=== PATIENT | male | born 1940 | race Caucasian/White ===

== ENCOUNTER 2017-10-28 10:33 | Inpatient (IN) ==
[2017-10-28] MEDS ORDERED: Metoprolol Tartrate 25 MG Tablet PO SCH (11:30)
[2017-10-28] MEDS ORDERED: Chlorhexidine Gluconate 2% 1 Pack (2 Cloths) TOPICAL SCH (11:30)
[2017-10-28] MEDS ORDERED: Sodium Chlor 0.9% Inj 500 ML IV.SIG SCH (12:00)
[2017-10-28] MEDS ORDERED: Phenylephrine/NS 1000 MCG/10ML Syringe IV.PUSH ONE (12:00)
[2017-10-28] MEDS ORDERED: Lidocaine PF 1% Inj 5 ML Syringe INFILTRATN ONE (12:00)
[2017-10-28] MEDS ORDERED: Normosol-R pH 7.4 Inj 1,000 ML IV.CONT ONE (12:00)
[2017-10-28] MEDS ORDERED: fentaNYL Citrate Inj 250 MCG/5 ML Ampul ONE (19:12)
[2017-10-28] MEDS ORDERED: Lidocaine 1%/Epinephrine 1:100,000 Inj 20 ML Vial ONE ×2 (19:14→20:35)
[2017-10-28] MEDS ORDERED: Thrombin Topical Soln 5,000 UNIT Vial TOPICAL ONE (19:15)
[2017-10-28] MEDS ORDERED: Heparin - SQ 10,000 UNITS/ML Vial SQ ONE (19:16)
[2017-10-28] MEDS ORDERED: Ketamine Inj 50 MG/5 ML Syringe IV.PUSH ONE ×2 (19:21→23:02)
[2017-10-28] MEDS ORDERED: Gelatin Size 100 Topical Foam ONE (19:49)
[2017-10-28] MEDS ORDERED: Propofol Inj 500 MG/50 ML Vial ONE (21:37)
[2017-10-29] MEDS ORDERED: Sodium Bicarbonate 8.4% Inj 50 MEQ/50 ML Syringe ONE ×2 (02:26→03:13)
[2017-10-29 02:30] LABS: ABG PCO2 43 mmHg (38-42); ABG PO2 235 mmHG (61-120)
[2017-10-29] MEDS ORDERED: fentaNYL Citrate Inj 100 MCG/2 ML Ampul ONE (02:47)
[2017-10-29] MEDS ORDERED: Morphine Inj 4 MG/ML Vial IV.PUSH PRN (02:58)
[2017-10-29] MEDS ORDERED: Bisacodyl 10 MG Supp RECTAL PRN (02:58)
[2017-10-29] MEDS ORDERED: Acetaminophen 325 MG Tablet PO PRN (02:58)
--- NOTE | 2017-10-29 02:58 | P.OP ---
- Preoperative Diagnosis (1) Lumbar radiculopathy (2) Synovial cyst of lumbar facet joint (3) Lumbar disc herniation with radiculopathy (4) Lumbar stenosis with neurogenic claudication - Postoperative Diagnosis (1) Lumbar radiculopathy (2) Synovial cyst of lumbar facet joint (3) Lumbar disc herniation with radiculopathy (4) Lumbar stenosis with neurogenic claudication Date of procedure: 10/28/17 Procedure: 1. Bilateral L3-4 and L4-5 decompressive semi-laminectomy, left facetectomy and foraminotomy 2. L3-4 and L4-5 discectomy, resection posterior osteophytic disc complex 3. Resection left L3-4 synovial cyst 4. L3-4 and L4-5 interbody fusion, PEEK cage, lamina autograft bone and demineralized bone matrix. 5. Bilateral L3 through L5 posterior lateral fusion, lamina autograft bone and demineralized bone matrix 6. Bilateral L3 through 5 posterior instrumentation with pedicle screw fixation Implants: L3-4 and L4-5 lordotic PEEK cages, spine with pedicle screw fixation Anesthesia: DIOMEDES Surgeon: Raghavendra Van MD Human Anatomy Teacher: Sathya Couch Estimated blood loss (mL): 350 Pathology: none sent Operation and Findings: Indications: 77-year-old male with progressive severe left gluteal and lower extremity pain not relieved with conservative treatment including physical therapy, medications and interventional pain management, with more recent onset left L5 distribution sensory motor deficit with left foot drop. Findings: Left L3-4 synovial cyst with significant adhesions to the thecal sac and exiting left L4 nerve root. Poor overall bone quality. A large L4-5 and moderate L3-4 posterior osteophytic disc complex causing significant compression on the ventral thecal sac. Procedure in detail The patient was brought to the operating room and general endotracheal anesthesia induced without difficulty Lines were established per Anesthesia Sequential compression devices were in place The patient was positioned prone on the concentric Vishnu table with the side bolsters and all extremities appropriately padded Leads for intraoperative neuro monitoring were placed prior to positioning and a baseline study obtained Appropriate timeout procedure was performed with all personnel present and in agreement The lumbar region was shaved with clippers and sterilely prepped and draped 1% Xylocaine with epinephrine was used for local infiltration over the incision site which was made approximately 4 cm lateral to the midline at the bilateral L3-5 level and carried sharply down to the fascia. The fascia was sharply incised and finger dissection was used to separate the normal intermuscular plane at the bilateral L3-5 level, allowing direct palpation of the junction of the and pedicle and transverse process on each side. The entry point for the pedicle screws were determined by anatomic and radiographic landmarks. Using AP and lateral C-arm imaging, the Jamshidi needle was guided through the bilateral L3, L4 and L5 pedicle. The intraoperative C-arm imaging was used to verify appropriate Jamshidi needle placement. The wires were then placed through the Jamshidi needle cannulas, and the cannula was withdrawn. The wires were temporarily clipped away from the operative field. On the left side Dowell elevator was used for subperiosteal elevation of paraspinous musculature and fascia away from the lamina and spinous processes L3 , L4, and L5. The deep self-retaining retractor was placed sequentially at the L3-4 and L4-5 levels for the decompression and cage placement. The appropriate levels were verified with intraoperative C-arm The microscope was moved into place and used for the remainder of the procedure including the closure The TPS drill with a 5 mm bone bur followed by the Kerrison rongeur was used to remove the inferior two thirds of the lamina at the cephalad level of the decompression and the superior third of the lamina at the caudal level of the decompression. This was performed starting on the left side, and then working across midline towards the right. The facetectomy and foraminotomy was performed on the left side with the 2 and 3 mm Kerrison rongeur in order to fully decompress the lateral recess and exiting nerve roots. Hypertrophied ligamentum flavum was elevated away from the thecal sac and exiting nerve roots with the thin ligament dissector and resected with a 15 blade knife and Kerrison rongeur. At the left L3-4 level, there was a moderate sized synovial cyst impinging on the lateral recess and exiting left L4 nerve root. There were dense adhesions between the synovial cyst and thecal sac. The majority of the capsule of the cyst was resected with the microscissors and 11 blade knife under high-power microscope magnification, and the residual cyst wall which was markedly adherent to the dura was left in place but was not causing any significant compression on the thecal sac or nerve root. The thecal sac and exiting nerve root were freed up from surrounding adhesions with the microdissectors and gently retracted medially revealing the underlying disc and annulus. There was moderate subannular disc herniation with partial calcification at the L3-4 level, with a very prominent posterior osteophytic disc complex at the L4- 5 level causing significant compression on the thecal sac. The annulus was incised with the 11 blade knife and discectomy performed with pituitary biopsy forceps and straight and angled curettes. The impactor and reverse curettes were used to remove the posterior osteophytic disc complex at the L3-4 and L4-5 level. In preparation for the interbody cages, endplate scrapers were used to decorticate the endplates and any remaining debris was removed with the antibiotic irrigation and suction and pituitary biopsy forceps The appropriate size lordotic PEEK cage was packed with retained lamina cancellus autograft And a small amount of demineralized bone matrix The cage was placed at the L3-4 and L4-5 level with a good fit of the cage. The placement was checked under the microscope and with intraoperative C-arm and felt to be satisfactory. The thecal sac and nerve roots were probed with the long blunt nerve hook and felt to be well decompressed The cannulated 5.5 mm tap was then used to prepare the pedicle screw sites on each side, with the dilators used to protect the surrounding tissue. The appropriate length Spine Wave Sniper percutaneous cannulated pedicle screw attached to the MIS extenders were placed into the bilateral L3, L4 and L5 pedicle using the existing guidewires which were then removed. Pedicle screw placement was checked with intraoperative C-arm imaging and felt to be satisfactory. The percutaneous rods were placed across the pedicle screws on each side. The locking caps were secured with the torque wrench and anti-torque device Compression and alignment were achieved as necessary with the rods and reducers. The entire construct was checked with intraoperative C-arm and felt to be satisfactory The region was well irrigated with antibiotic irrigation The posterior lateral structures at the bilateral L3-4 -5 levels were decorticated with the TPS drill The shavings were left in place, to which was added the remaining autograft and allograft bone which was firmly packed in place for the posterior lateral fusion. The 7 mm flat fluted drain was left in place at the operative side and brought out through a incision at the upper lumbar region and secured to the skin with nylon suture and attached to sterile suction bleeding was carefully controlled with the bipolar forceps The closure was performed with 0 Vicryl interrupted for the deep and superficial fascia, with 3-0 Vicryl for the subcutaneous closure and 4-0 Vicryl running subcuticular closure. Dressings sterile Mastisol, Steri-Strips and Primapore was placed The patient was turned into supine position and taken to recovery room in stable condition All counts were correct at the end of the case Estimated blood loss was 350 cc No specimen was sent to pathology Neuro monitoring was stable during the procedure
[2017-10-29 03:22] LABS: ABG Base Excess -5.9 mmol/L (-2-2); ABG PCO2 42 mmHg (38-42); ABG PO2 143 mmHG (61-120)
[2017-10-29] MEDS ORDERED: *morphine SULFATE 4 MG/ML PERIprocedure ONLY ONE (03:22)
--- NOTE | 2017-10-29 03:27 | XR ---
EXAM DATE: 10/29/2017 2:50 AM EDT AGE/SEX: 77 years / Male INDICATIONS: L3,L4,L5 fusion. CLINICAL DATA: This is the patient's initial encounter. Patient reports that signs and symptoms have been present for 1 day and indicates a pain score of 0/10. MEDICAL/SURGICAL HISTORY: Non-responsive. Non-responsive. COMPARISON: [facility], MR CERVICAL SPINE W/O CONTRAST, 10/09/2017. . FINDINGS: 2 fluoroscopic images of the lower lumbar spine demonstrate intradiscal and posterior artem and transpe dicular screw fixation at L3-5. Hardware appears well-positioned. Visualized vertebral body heights a re intact. CONCLUSION: 1. L3-5 posterior fixation, as above. Electronically signed by: Steven Rios MD 10/29/2017 3:26 AM EDT
[2017-10-29] MEDS ORDERED: Sodium Chlor 0.9% Inj 250 ML IV.SIG ONE (04:00)
[2017-10-29 04:02] LABS: ABG Base Excess -4.2 mmol/L (-2-2); ABG PCO2 50 mmHg (38-42); ABG PO2 201 mmHG (61-120)
[2017-10-29 04:24] LABS: Baso % (Auto) 0.1 % (0.0-2.0); Hematocrit 33.1 % (39.0-51.0); Hemoglobin 11.1 gm/dL (13.0-17.0); Lymph # (Auto) 0.5 th/mm3 (1.0-4.8); Lymph % (Auto) 3.8 % (9.0-44.0); Mean Corpuscular HGB Conc 33.5 % (32.0-36.0); Mean Corpuscular Hemoglobin 34.2 pg (27.0-34.0); Mean Corpuscular Volume 101.9 fL (80.0-100.0); Mean Platelet Volume 8.3 fL (7.0-11.0); Mono # (Auto) 0.6 th/mm3 (0.0-0.9); Mono % (Auto) 4.8 % (0.0-8.0); Neut # (Auto) 11.9 th/mm3 (1.8-7.7); Neut % (Auto) 91.3 % (16.0-70.0); Platelet Count 164 th/mm3 (150-450); Red Blood Count 3.25 mil/mm3 (4.50-5.90); White Blood Count 13.1 th/mm3 (4.0-11.0)
[2017-10-29 04:39] LABS: Calcium 8.2 mg/dL (8.5-10.1); Carbon Dioxide 23.8 meq/L (21.0-32.0); Potassium 3.5 meq/L (3.5-5.1)
--- NOTE | 2017-10-29 07:26 | XR ---
EXAM DATE: 10/29/2017 7:02 AM EDT AGE/SEX: 77 years / Male INDICATIONS: Short of breath. CLINICAL DATA: This is the patient's subsequent encounter. Patient reports that signs and symptoms h ave been present for 3 days and indicates a pain score of Nonresponsive. MEDICAL/SURGICAL HISTORY: . Cardiovascular disease. Hypertension. None. COMPARISON: [facility] [place], CHEST 2V PA&LAT, 10/27/2017. . FINDINGS: A single AP view of the chest demonstrates the lungs to be symmetrically aerated without evidence of mass, infiltrate or effusion. The cardiomediastinal contours are unremarkable. Osseous structures a re intact. Hyperinflation. CONCLUSION: Negative examination. Electronically signed by: Rajeev Barbosa MD 10/29/2017 7:24 AM EDT
[2017-10-29] MEDS: amLODIPine 5 MG Tablet PO SCH ×2 (08:53→21:29)
[2017-10-29] MEDS: Famotidine 20 MG Tablet PO SCH (08:53)
[2017-10-29] MEDS: Senna/Docusate Sodium 8.6/50 MG Tablet PO SCH ×2 (08:53→21:29)
[2017-10-29] MEDS: Spironolactone 25 MG Tablet PO SCH (08:53)
[2017-10-29] MEDS: Metoprolol Tartrate 50 MG Tablet PO SCH ×2 (08:53→21:29)
--- NOTE | 2017-10-29 17:38 | P.PNNS ---
Subjective Interval history: 10/28: The patient presented to [facility] to undergo a bilateral L3-4 and L4-5 PLIF. Post-operatively the patient was admitted to a regular med/surg floor for further care and monitoring. 10/29: This afternoon the patient is seen sitting up in the chair with the LSO brace on. He states that his back feels good and he has minimal pain. He reports that the left lower extremity is doing great. Physical Therapy has evaluated the patient and had him upon ambulating with a wheeled walker. His lower extremity motor strength is essentially normal upon examination and he had no sensory deficits. <Joshua Alejandro E - Last Filed: 10/29/17 17:44> Physical Exam Vital signs: Vital Signs 10/28/17 18:35 10/29/17 02:36 10/29/17 02:45 Temperature 97.6 F 97.4 F L Pulse Rate 66 102 H 97 H Respiratory Rate 15 Blood Pressure 176/88 H 134/68 134/52 L Pulse Oximetry 98 100 10/29/17 03:00 10/29/17 03:15 10/29/17 03:30 Temperature Pulse Rate 97 H 97 H 97 H Respiratory Rate 12 15 10 L Blood Pressure 132/53 L 132/51 L 133/51 L Pulse Oximetry 100 100 100 10/29/17 03:45 10/29/17 04:00 10/29/17 04:15 Temperature 97.4 F L Pulse Rate 97 H 97 H 84 Respiratory Rate 9 L 9 L 20 Blood Pressure 134/61 132/43 L 131/64 Pulse Oximetry 100 100 100 10/29/17 04:18 10/29/17 06:00 10/29/17 08:00 Temperature 98.0 F 97.7 F Pulse Rate 99 H 94 H Respiratory Rate 17 18 Blood Pressure 117/61 144/67 H Pulse Oximetry 100 100 94 L 10/29/17 12:00 10/29/17 16:00 Temperature 98.2 F 97.7 F Pulse Rate 91 H 68 Respiratory Rate 18 18 Blood Pressure 150/72 H 151/69 H Pulse Oximetry 99 95 Intake & Output 10/28/17 10/29/17 10/29/17 18:59 06:59 18:59 Intake Total 2450 / 2450 Output Total 935 / 935 Balance 1515 / 1515 Weight 63.3 kg Intake: IV 250 / 250 NS Inj 250 ML @ As Directed IV. 250 / 250 SIG BOLUS ONE Rx#:[id number] Anesthesia Amount 2200 / 2200 Output: Estimated Blood Loss 350 / 350 Urine Amount (Catheter) 465 / 465 Indwelling Urethral Catheter 465 / 465 Wound Drainage 120 / 120 # 1 Lower Back CARMEN Drain 120 / 120 Other: Date of Last Bowel Movement 10/28/17 10/28/17 Weight On Admission 63.3 kg Narrative: GENERAL: Awake & alert sitting up in the chair eating supper and visiting w/his . His affect is normal and he readily interacts. He is not in any apparent distress. HEENT: Normocephalic, atraumatic. RESPIRATORY: CTAB w/o W/R/R, equal excursion, nonlaboured, on RA. CARDIOVASCULAR: S1S2 w/RRR w/o M/G/R. GASTROINTESTINAL: Abdomen, soft, nontender, positive bowel sounds. GENITOURINARY: Ramos catheter to BSD w/clear yellow urine. MUSCULOSKELETAL: RAINES spontaneously & purposefully w/o difficulty. No evident clubbing or deformity. BLE NTTP. Dressings intact to back w/shadowing noted to the superior midline dressing, the CARMEN drain is to bulb suction w/scant serosanguinous drainage having just been emptied. NEUROLOGICAL: AAOx3. Speech clear & appropriate. Follows simple commands w/o difficulty. Sensation is intact to light touch to the lower extremities. Motors strength to the RLE is 5/5 and the LLE is 4+ to 5/5 except for the left extensor hallucis longus is 3+ to 4/5. - Urinary Catheter Management Indwelling Urethral Catheter Cath placed during this visit: yes Reason for continuing: Other continuation reason Insertion date: 10/29/17 <Joshua Alejandro E - Last Filed: 10/29/17 17:44> Vital signs: Vital Signs 10/31/17 03:58 10/31/17 09:11 10/31/17 12:00 Temperature 97.6 F 98.3 F 97.5 F L Pulse Rate 65 68 60 Respiratory Rate 18 16 16 Blood Pressure 161/74 H 154/67 H 139/65 Pulse Oximetry 96 94 L 94 L 10/31/17 16:00 10/31/17 20:00 10/31/17 23:32 Temperature 97.6 F 98.4 F Pulse Rate 67 65 Respiratory Rate 16 16 16 Blood Pressure 161/70 H 173/78 H Pulse Oximetry 95 96 11/01/17 00:00 Temperature 97.3 F L Pulse Rate 58 L Respiratory Rate 16 Blood Pressure 155/70 H Pulse Oximetry 95 Intake & Output 10/31/17 10/31/17 11/01/17 06:59 18:59 06:59 Intake Total 360 / 360 600 / 600 240 / 240 Output Total 25 40 / 40 Balance 335 / 335 560 / 560 240 / 240 Weight 62.7 kg Intake: Oral 360 / 360 600 / 600 240 / 240 Output: Wound Drainage 40 / 40 # 1 Lower Back CARMEN Drain 40 / 40 Other: # Voids 4 4 3 Date of Last Bowel Movement 10/28/17 10/28/17 # Bowel Movements 0 - Urinary Catheter Management Indwelling Urethral Catheter Cath placed during this visit: no <Raghavendra Van - Last Filed: 11/01/17 01:02> Assessment and Plan - Plan Impression: (1) Lumbar radiculopathy (2) Synovial cyst of lumbar facet joint (3) Lumbar disc herniation with radiculopathy (4) Lumbar stenosis with neurogenic claudication The patient is doing well post-operatively. His pain is well controlled. He ambulating with a wheeled walker. His sensorimotor exam is essentially normal. Past 24 hrs: Afebrile. CARMEN drain output of 120 mL since surgery as of shift change this morning. Reviewed labs for today. Leukocytosis. Anaemia. eGFR 41. POD #1 () s/p: 1. Bilateral L3-4 and L4-5 decompressive semi-laminectomy, left facetectomy and foraminotomy 2. L3-4 and L4-5 discectomy, resection posterior osteophytic disc complex 3. Resection left L3-4 synovial cyst 4. L3-4 and L4-5 interbody fusion, PEEK cage, lamina autograft bone and demineralized bone matrix. 5. Bilateral L3 through L5 posterior lateral fusion, lamina autograft bone and demineralized bone matrix 6. Bilateral L3 through 5 posterior instrumentation with pedicle screw fixation Plan: Neuro checks. Mobilise patient w/assistance. Physical Therapy eval & tx. Will d/c Ramos catheter. <Javon,Joshua E - Last Filed: 10/29/17 17:44> - Attending Attestation The exam, history, and the medical decision-making described in the above note were completed with the assistance of the mid-level provider. I reviewed and agree with the findings presented. I attest that I had a [id number] encounter with the patient on the same day, and personally performed and documented my assessment and findings in the medical record. Postop day #1. Moderate drain output. Requiring some IV pain medicines for pain control. Out of bed with brace Continue therapy Continue drain <Raghavendra Van - Last Filed: 11/01/17 01:02>
[2017-10-30 05:12] LABS: Baso % (Auto) 0.4 % (0.0-2.0); Eos # (Auto) 0.1 th/mm3 (0.0-0.4); Eos % (Auto) 0.7 % (0.0-4.0); Hematocrit 29.4 % (39.0-51.0); Lymph # (Auto) 0.9 th/mm3 (1.0-4.8); Lymph % (Auto) 9.7 % (9.0-44.0); Mean Corpuscular HGB Conc 33.9 % (32.0-36.0); Mean Corpuscular Hemoglobin 34.5 pg (27.0-34.0); Mean Corpuscular Volume 101.7 fL (80.0-100.0); Mean Platelet Volume 8.5 fL (7.0-11.0); Mono # (Auto) 1.1 th/mm3 (0.0-0.9); Mono % (Auto) 12.9 % (0.0-8.0); Neut # (Auto) 6.8 th/mm3 (1.8-7.7); Neut % (Auto) 76.3 % (16.0-70.0); Platelet Count 154 th/mm3 (150-450); Red Blood Count 2.89 mil/mm3 (4.50-5.90); Red Cell Distribution Width 13.4 % (11.6-17.2); White Blood Count 8.9 th/mm3 (4.0-11.0)
[2017-10-30 05:37] LABS: Calcium 8.2 mg/dL (8.5-10.1); Carbon Dioxide 27.8 meq/L (21.0-32.0); Potassium 4.1 meq/L (3.5-5.1)
[2017-10-30] MEDS: Senna/Docusate Sodium 8.6/50 MG Tablet PO SCH ×2 (08:38→20:27)
[2017-10-30] MEDS: Metoprolol Tartrate 50 MG Tablet PO SCH ×2 (08:38→20:27)
[2017-10-30] MEDS: amLODIPine 5 MG Tablet PO SCH ×2 (08:38→20:27)
[2017-10-30] MEDS: Famotidine 20 MG Tablet PO SCH (08:38)
--- NOTE | 2017-10-30 15:41 | P.DCO ---
- Home Health Nursing Order: Nursing assessment with vital signs - Certification I have seen patient Willy Tyson on 10/30/17. My clinical findings support the need for the requested home health care services because: Deconditioned with increased weakness, High risk of falls I certify that my clinical findings support that this patient is homebound because: Unsteady gait/balance, Unsafe to leave home unassisted
--- NOTE | 2017-10-30 15:45 | P.PNNS ---
Subjective Interval history: 10/28: The patient presented to [facility] to undergo a bilateral L3-4 and L4-5 PLIF. Post-operatively the patient was admitted to a regular med/surg floor for further care and monitoring. 10/29: This afternoon the patient is seen sitting up in the chair with the LSO brace on. He states that his back feels good and he has minimal pain. He reports that the left lower extremity is doing great. Physical Therapy has evaluated the patient and had him upon ambulating with a wheeled walker. His lower extremity motor strength is essentially normal upon examination and he had no sensory deficits. 10/30: When seen this afternoon the patient had his eyes closed but as soon as this practitioner spoke with his he opened them. He was awake and alert after that. He reports that he has a little back pain but it isn't too bad. He denies any pain, numbness or tingling to the lower extremities. Nursing reports that the patient has been up and doing laps around the floor using the wheeled walker. His evaluation is stable. <Joshua Alejandro E - Last Filed: 10/30/17 15:49> Physical Exam Vital signs: Vital Signs 10/29/17 16:00 10/29/17 20:05 10/30/17 00:00 Temperature 97.7 F 98.3 F 98.1 F Pulse Rate 68 66 67 Respiratory Rate 18 16 16 Blood Pressure 151/69 H 135/61 131/63 Pulse Oximetry 95 96 94 L 10/30/17 04:00 Temperature 98.0 F Pulse Rate 80 Respiratory Rate 16 Blood Pressure 180/77 H Pulse Oximetry 94 L Intake & Output 10/29/17 10/30/17 10/30/17 18:59 06:59 18:59 Intake Total 1000 / 1000 480 / 480 Output Total 120 / 120 1770 / 1770 Balance 880 / 880 -1290 / -1290 Intake: IV 1000 / 1000 NS + KCl 20 mEq Inj 1,000 ML @ 1000 / 1000 100 mls/hr IV.CONT .Q10H EDWIN Rx #:[id number] Oral 480 / 480 Output: Urine Amount (Catheter) 1700 / 1700 Indwelling Urethral Catheter 1700 / 1700 Wound Drainage 120 / 120 70 / 70 # 1 Lower Back CARMEN Drain 120 / 120 70 / 70 Other: # Voids 3 Date of Last Bowel Movement 10/28/17 10/29/17 # Bowel Movements 0 Narrative: GENERAL: Appears asleep but is immediately awake & alert when he hears this practitioner speaking with his . His affect is normal and he readily interacts. He is not in any apparent distress. HEENT: Normocephalic, atraumatic. MUSCULOSKELETAL: RAINES spontaneously & purposefully w/o difficulty. No evident clubbing or deformity. BLE NTTP. Dressings intact to back w/increased shadowing noted to the midline dressing, the CARMEN drain is to bulb suction w/serosanguinous drainage. NEUROLOGICAL: AAOx3. Speech clear & appropriate. Follows simple commands w/o difficulty. Sensation is intact to light touch to the lower extremities. Motors strength to the RLE is 5/5 and the LLE is 4+ to 5/5 except for the left extensor hallucis longus is 3+ to 4/5. - Urinary Catheter Management Indwelling Urethral Catheter Cath placed during this visit: yes, but has since been removed by the nurse Reason for continuing: Decision to DC catheter Insertion date: 10/29/17 Removal date: 10/29/17 Removal time: 18:22 <Joshua Alejandro E - Last Filed: 10/30/17 15:49> Vital signs: Vital Signs 10/31/17 03:58 10/31/17 09:11 10/31/17 12:00 Temperature 97.6 F 98.3 F 97.5 F L Pulse Rate 65 68 60 Respiratory Rate 18 16 16 Blood Pressure 161/74 H 154/67 H 139/65 Pulse Oximetry 96 94 L 94 L 10/31/17 16:00 10/31/17 20:00 10/31/17 23:32 Temperature 97.6 F 98.4 F Pulse Rate 67 65 Respiratory Rate 16 16 16 Blood Pressure 161/70 H 173/78 H Pulse Oximetry 95 96 11/01/17 00:00 Temperature 97.3 F L Pulse Rate 58 L Respiratory Rate 16 Blood Pressure 155/70 H Pulse Oximetry 95 Intake & Output 10/31/17 10/31/17 11/01/17 06:59 18:59 06:59 Intake Total 360 / 360 600 / 600 240 / 240 Output Total 25 / 25 40 / 40 Balance 335 / 335 560 / 560 240 / 240 Weight 62.7 kg Intake: Oral 360 / 360 600 / 600 240 / 240 Output: Wound Drainage 25 / 40 / 40 # 1 Lower Back CARMEN Drain 40 / 40 Other: # Voids 4 4 3 Date of Last Bowel Movement 10/28/17 10/28/17 # Bowel Movements 0 - Urinary Catheter Management Indwelling Urethral Catheter Cath placed during this visit: no <Raghavendra Van Ananth - Last Filed: 11/01/17 01:03> Assessment and Plan - Assessment (1) Lumbar radiculopathy Code(s): M54.16 - Radiculopathy, lumbar region Status: Acute (2) Synovial cyst of lumbar facet joint Code(s): M71.38 - Other bursal cyst, other site Status: Acute (3) Lumbar disc herniation with radiculopathy Code(s): M51.16 - Intervertebral disc disorders with radiculopathy, lumbar region Status: Acute (4) Lumbar stenosis with neurogenic claudication Code(s): M48.062 - Spinal stenosis, lumbar region with neurogenic claudication Status: Acute - Plan Impression: (1) Lumbar radiculopathy (2) Synovial cyst of lumbar facet joint (3) Lumbar disc herniation with radiculopathy (4) Lumbar stenosis with neurogenic claudication The patient continues to do well post-operatively. His pain remains well controlled. He ambulating with a wheeled walker. His sensorimotor exam is stable. Past 24 hrs: Afebrile. Elevated SBP this afternoon. CARMEN drain output of 190 mL for the past 24 hrs as of shift change this morning. Reviewed labs for today. Resolution of leukocytosis. Drop in haemoglobin level. eGFR 41. POD #2 () s/p: 1. Bilateral L3-4 and L4-5 decompressive semi-laminectomy, left facetectomy and foraminotomy 2. L3-4 and L4-5 discectomy, resection posterior osteophytic disc complex 3. Resection left L3-4 synovial cyst 4. L3-4 and L4-5 interbody fusion, PEEK cage, lamina autograft bone and demineralized bone matrix. 5. Bilateral L3 through L5 posterior lateral fusion, lamina autograft bone and demineralized bone matrix 6. Bilateral L3 through 5 posterior instrumentation with pedicle screw fixation Plan: Neuro checks. Mobilise patient w/assistance. Physical Therapy eval & tx. Continue to monitor CARMEN drain output. <Joshua Alejandro - Last Filed: 10/30/17 15:49> - Attending Attestation The exam, history, and the medical decision-making described in the above note were completed with the assistance of the mid-level provider. I reviewed and agree with the findings presented. I attest that I had a [id number] encounter with the patient on the same day, and personally performed and documented my assessment and findings in the medical record. Pain improving. No significant lower extremity pain symptoms. Sensorimotor exam intact lower extremities Dressing dry Continued moderate drain output Continue drain Continue therapy <Raghavendra Van - Last Filed: 11/01/17 01:03>
[2017-10-31] MEDS: Spironolactone 25 MG Tablet PO SCH (09:15)
[2017-10-31] MEDS: Senna/Docusate Sodium 8.6/50 MG Tablet PO SCH ×2 (09:15→20:40)
[2017-10-31] MEDS: Famotidine 20 MG Tablet PO SCH (09:15)
[2017-10-31] MEDS: Metoprolol Tartrate 50 MG Tablet PO SCH ×2 (09:16→20:40)
[2017-10-31] MEDS: amLODIPine 5 MG Tablet PO SCH ×2 (09:16→20:40)
--- NOTE | 2017-10-31 15:14 | P.PNNS ---
Subjective Interval history: 10/28: The patient presented to [facility] to undergo a bilateral L3-4 and L4-5 PLIF. Post-operatively the patient was admitted to a regular med/surg floor for further care and monitoring. 10/29: This afternoon the patient is seen sitting up in the chair with the LSO brace on. He states that his back feels good and he has minimal pain. He reports that the left lower extremity is doing great. Physical Therapy has evaluated the patient and had him upon ambulating with a wheeled walker. His lower extremity motor strength is essentially normal upon examination and he had no sensory deficits. 10/30: When seen this afternoon the patient had his eyes closed but as soon as this practitioner spoke with his he opened them. He was awake and alert after that. He reports that he has a little back pain but it isn't too bad. He denies any pain, numbness or tingling to the lower extremities. Nursing reports that the patient has been up and doing laps around the floor using the wheeled walker. His evaluation is stable. 10/31: Today the patient is awake and alert in bed. He says he is "Terrible" when asked how he is doing. When asked why he states "Because I am still here." He is able to smile and laugh when he says this. He reports only a little bit of pain to the surgical incision and says that the left lower extremity is " good as new." He exam is stable. <Joshua Alejandro E - Last Filed: 10/31/17 15:18> Physical Exam Vital signs: Vital Signs 10/30/17 16:00 10/30/17 18:46 10/30/17 20:45 Temperature 98 F 98.1 F Pulse Rate 70 70 Respiratory Rate 16 18 Blood Pressure 170/79 H 134/63 Pulse Oximetry 97 97 95 10/31/17 00:36 10/31/17 03:58 10/31/17 09:11 Temperature 97.6 F 97.6 F 98.3 F Pulse Rate 68 65 68 Respiratory Rate 18 18 16 Blood Pressure 155/74 H 161/74 H 154/67 H Pulse Oximetry 95 96 94 L 10/31/17 12:00 Temperature 97.5 F L Pulse Rate 60 Respiratory Rate 16 Blood Pressure 139/65 Pulse Oximetry 94 L Intake & Output 10/30/17 10/31/17 10/31/17 18:59 06:59 18:59 Intake Total 360 / 360 Output Total Balance -55 / -55 335 / 335 Weight 62.7 kg Intake: Oral 360 / 360 Output: Wound Drainage # 1 Lower Back CARMEN Drain Other: # Voids 3 4 Date of Last Bowel Movement 10/28/17 10/28/17 # Bowel Movements 0 Narrative: GENERAL: Awake & alert in bed visiting with his . His affect is normal and he readily interacts. He is not in any apparent distress. HEENT: Normocephalic, atraumatic. MUSCULOSKELETAL: RAINES spontaneously & purposefully w/o difficulty. No evident clubbing or deformity. BLE NTTP. Dressings intact to back w/shadowing, the CARMEN drain is to bulb suction w/scant serosanguinous drainage. NEUROLOGICAL: AAOx3. Speech clear & appropriate. Follows simple commands w/o difficulty. Sensation is intact to light touch to the lower extremities. Motors strength to the RLE is 5/5 and the LLE is 4+ to 5/5 except for the left extensor hallucis longus is 3+ to 4/5. - Urinary Catheter Management Indwelling Urethral Catheter Cath placed during this visit: yes, but has since been removed by the nurse Reason for continuing: Decision to DC catheter Insertion date: 10/29/17 Removal date: 10/29/17 Removal time: 18:22 <Joshua Alejandro E - Last Filed: 10/31/17 15:18> Vital signs: Vital Signs 10/31/17 03:58 10/31/17 09:11 10/31/17 12:00 Temperature 97.6 F 98.3 F 97.5 F L Pulse Rate 65 68 60 Respiratory Rate 18 16 16 Blood Pressure 161/74 H 154/67 H 139/65 Pulse Oximetry 96 94 L 94 L 10/31/17 16:00 10/31/17 20:00 10/31/17 23:32 Temperature 97.6 F 98.4 F Pulse Rate 67 65 Respiratory Rate 16 16 16 Blood Pressure 161/70 H 173/78 H Pulse Oximetry 95 96 11/01/17 00:00 Temperature 97.3 F L Pulse Rate 58 L Respiratory Rate 16 Blood Pressure 155/70 H Pulse Oximetry 95 Intake & Output 10/31/17 10/31/17 11/01/17 06:59 18:59 06:59 Intake Total 360 / 360 600 / 600 240 / 240 Output Total 40 / 40 Balance 335 / 335 560 / 560 240 / 240 Weight 62.7 kg Intake: Oral 360 / 360 600 / 600 240 / 240 Output: Wound Drainage 40 / 40 # 1 Lower Back CARMEN Drain 40 Other: # Voids 4 4 3 Date of Last Bowel Movement 10/28/17 10/28/17 # Bowel Movements 0 - Urinary Catheter Management Indwelling Urethral Catheter Cath placed during this visit: no <Raghavendra Van - Last Filed: 11/01/17 01:04> Assessment and Plan - Assessment (1) Lumbar radiculopathy Code(s): M54.16 - Radiculopathy, lumbar region Status: Acute (2) Synovial cyst of lumbar facet joint Code(s): M71.38 - Other bursal cyst, other site Status: Acute (3) Lumbar disc herniation with radiculopathy Code(s): M51.16 - Intervertebral disc disorders with radiculopathy, lumbar region Status: Acute (4) Lumbar stenosis with neurogenic claudication Code(s): M48.062 - Spinal stenosis, lumbar region with neurogenic claudication Status: Acute - Plan Impression: (1) Lumbar radiculopathy (2) Synovial cyst of lumbar facet joint (3) Lumbar disc herniation with radiculopathy (4) Lumbar stenosis with neurogenic claudication The patient is doing well. He has minimal pain to the surgical incision. His neuro exam is stable. Past 24 hrs: Afebrile. Intermittently elevated SBP. CARMEN drain output of 80 mL for the past 24 hrs as of shift change this morning. Nursing reports that she just dumped 40 mL from the bulb. No labs for today. POD #3 () s/p: 1. Bilateral L3-4 and L4-5 decompressive semi-laminectomy, left facetectomy and foraminotomy 2. L3-4 and L4-5 discectomy, resection posterior osteophytic disc complex 3. Resection left L3-4 synovial cyst 4. L3-4 and L4-5 interbody fusion, PEEK cage, lamina autograft bone and demineralized bone matrix. 5. Bilateral L3 through L5 posterior lateral fusion, lamina autograft bone and demineralized bone matrix 6. Bilateral L3 through 5 posterior instrumentation with pedicle screw fixation Plan: Neuro checks. Mobilise patient w/assistance. Physical Therapy eval & tx. Will have Nursing d/c CARMEN drain and steri-strip site. Plan to discharge home in AM. <Joshua Alejandro - Last Filed: 10/31/17 15:18> - Attending Attestation The exam, history, and the medical decision-making described in the above note were completed with the assistance of the mid-level provider. I reviewed and agree with the findings presented. I attest that I had a [id number] encounter with the patient on the same day, and personally performed and documented my assessment and findings in the medical record. Out of bed without assist Back pain diminishing Dressing dry Sensation intact lower extremities Strength normal lower extremities No radicular pain Moderate low back pain control with oral medications Continued moderate drain output. Not definite CSF. No postural headache. Dressing dry. Drain DC'd Observe overnight and plan discharge in a.m. if no further problems. <Raghavendra Van - Last Filed: 11/01/17 01:04>
[2017-10-31] MEDS ORDERED: Glycerin Adult 2 GM Supp RECTAL PRN (15:36)
[2017-11-01] MEDS: Metoprolol Tartrate 50 MG Tablet PO SCH (08:59)
[2017-11-01] MEDS: amLODIPine 5 MG Tablet PO SCH (08:59)
[2017-11-01] MEDS: Famotidine 20 MG Tablet PO SCH (08:59)
[2017-11-01] MEDS: Senna/Docusate Sodium 8.6/50 MG Tablet PO SCH (08:59)
--- NOTE | 2017-11-01 11:06 | P.DS ---
Date of admission: 10/28/17 10:33 Primary care physician: Octavio Isaac MD Attending physician on discharge: Raghavendra Van Anticipated date of discharge: 11/01/17 Brief History from admission: 10/28: The patient presented to [facility] to undergo a bilateral L3-4 and L4-5 PLIF. Post-operatively the patient was admitted to a regular med/surg floor for further care and monitoring. 10/29: This afternoon the patient is seen sitting up in the chair with the LSO brace on. He states that his back feels good and he has minimal pain. He reports that the left lower extremity is doing great. Physical Therapy has evaluated the patient and had him upon ambulating with a wheeled walker. His lower extremity motor strength is essentially normal upon examination and he had no sensory deficits. 10/30: When seen this afternoon the patient had his eyes closed but as soon as this practitioner spoke with his he opened them. He was awake and alert after that. He reports that he has a little back pain but it isn't too bad. He denies any pain, numbness or tingling to the lower extremities. Nursing reports that the patient has been up and doing laps around the floor using the wheeled walker. His evaluation is stable. 10/31: Today the patient is awake and alert in bed. He says he is "Terrible" when asked how he is doing. When asked why he states "Because I am still here." He is able to smile and laugh when he says this. He reports only a little bit of pain to the surgical incision and says that the left lower extremity is " good as new." He exam is stable. 11/01: The patient is awake and alert in bed when seen this morning. He is doing well with some soreness to the surgical site. He has no pain, numbness or tingling to the lower extremities. There is no change in his neuro exam upon evaluation. The CARMEN drain was removed yesterday and new dressings were placed over the surgical incision. There was a trace of drainage to the dressing where the CARMEN insertion site was but no active drainage from it. Physical Therapy has recommended that the patient be discharge with a front wheeled walker and Home Health for further therapy. Since he was doing well he was discharged home. DS: Diagnosis - Discharge Diagnosis (1) Lumbar radiculopathy Status: Acute (2) Synovial cyst of lumbar facet joint Status: Acute (3) Lumbar disc herniation with radiculopathy Status: Acute (4) Lumbar stenosis with neurogenic claudication Status: Acute DS: Medications - Discharge Medications Prescriptions: hydrocodone-acetaminophen 1 tab PO Q4H PRN #18 tab PRN Reason: Pain Scale 1 To 5 DS: Summary Hospital Course: 10/28: The patient presented to [facility] to undergo a bilateral L3-4 and L4-5 PLIF. Post-operatively the patient was admitted to a regular med/surg floor for further care and monitoring. 10/29: This afternoon the patient is seen sitting up in the chair with the LSO brace on. He states that his back feels good and he has minimal pain. He reports that the left lower extremity is doing great. Physical Therapy has evaluated the patient and had him upon ambulating with a wheeled walker. His lower extremity motor strength is essentially normal upon examination and he had no sensory deficits. 10/30: When seen this afternoon the patient had his eyes closed but as soon as this practitioner spoke with his he opened them. He was awake and alert after that. He reports that he has a little back pain but it isn't too bad. He denies any pain, numbness or tingling to the lower extremities. Nursing reports that the patient has been up and doing laps around the floor using the wheeled walker. His evaluation is stable. 10/31: Today the patient is awake and alert in bed. He says he is "Terrible" when asked how he is doing. When asked why he states "Because I am still here." He is able to smile and laugh when he says this. He reports only a little bit of pain to the surgical incision and says that the left lower extremity is " good as new." He exam is stable. 11/01: The patient is awake and alert in bed when seen this morning. He is doing well with some soreness to the surgical site. He has no pain, numbness or tingling to the lower extremities. There is no change in his neuro exam upon evaluation. The CARMEN drain was removed yesterday and new dressings were placed over the surgical incision. There was a trace of drainage to the dressing where the CARMEN insertion site was but no active drainage from it. Physical Therapy has recommended that the patient be discharge with a front wheeled walker and Home Health for further therapy. Since he was doing well he was discharged home. - Time Spent with Patient Total time spent providing and/or coordinating discharge services: Less than 30 minutes - Quality: VTE Deep Vein Thrombosis/Pulmonary Embolism Present on Admission: No Exam Vital signs: Vital Signs 10/31/17 12:00 10/31/17 16:00 10/31/17 20:00 Temperature 97.5 F L 97.6 F 98.4 F Pulse Rate 60 67 65 Respiratory Rate 16 16 16 Blood Pressure 139/65 161/70 H 173/78 H Pulse Oximetry 94 L 95 96 10/31/17 23:32 11/01/17 00:00 11/01/17 08:00 Temperature 97.3 F L 97.5 F L Pulse Rate 58 L 68 Respiratory Rate 16 16 20 Blood Pressure 155/70 H 115/69 Pulse Oximetry 95 96 11/01/17 08:59 Temperature Pulse Rate Respiratory Rate 18 Blood Pressure Pulse Oximetry Intake & Output 10/31/17 11/01/17 11/01/17 18:59 06:59 18:59 Intake Total 600 / 600 590 / 590 Output Total 40 / 40 Balance 560 / 560 590 / 590 Weight 59.8 kg Intake: Oral 600 / 600 590 / 590 Output: Wound Drainage 40 / 40 # 1 Lower Back CARMEN Drain 40 / 40 Other: # Voids 4 2 Date of Last Bowel Movement 10/28/17 10/28/17 10/28/17 Narrative: GENERAL: Awake & alert in bed visiting with his . His affect is normal and he readily interacts. He is not in any apparent distress. HEENT: Normocephalic, atraumatic. MUSCULOSKELETAL: RAINES spontaneously & purposefully w/o difficulty. No evident clubbing or deformity. BLE NTTP. Dressings intact to back w/trace shadowing at the CARMEN drain insertion site, o/w dressing dry & intact. NEUROLOGICAL: AAOx3. Speech clear & appropriate. Follows simple commands w/o difficulty. Sensation is intact to light touch to the lower extremities. Motors strength to the RLE is 5/5 and the LLE is 4+ to 5/5 except for the left extensor hallucis longus is 3+ to 4/5. Results Procedures completed during hospitalization: : 1. Bilateral L3-4 and L4-5 decompressive semi-laminectomy, left facetectomy and foraminotomy 2. L3-4 and L4-5 discectomy, resection posterior osteophytic disc complex 3. Resection left L3-4 synovial cyst 4. L3-4 and L4-5 interbody fusion, PEEK cage, lamina autograft bone and demineralized bone matrix. 5. Bilateral L3 through L5 posterior lateral fusion, lamina autograft bone and demineralized bone matrix 6. Bilateral L3 through 5 posterior instrumentation with pedicle screw fixation - Impressions ITS Impressions Lumbar Spine X-Ray 10/29/17 00:00 CONCLUSION: 1. L3-5 posterior fixation, as above. Chest X-Ray 10/29/17 06:00 CONCLUSION: Negative examination. Discharge Plan - Discharge Disposition Patient Disposition: /Home Health Service - Discharge Condition Condition: Good - Discharge Order Discharge Orders: Discharge Order (Routine); Ordered 11/01/17 Ordered By: Joshua Alejandro - Discharge Details Anticipated Discharge Date: 11/01/17 - Physicians Team Primary Care Provider: Octavio Isaac Attending Provider: Raghavendra Van - Rxs /Orders / Referrals /Forms Prescriptions: New acetaminophen 325 mg Tablet 650 mg PO Q4H PRN (Reason: Temperature > 101.5 F) RF: 0 albuterol sulfate 2.5 mg /3 mL (0.083 %) Solution For Nebulization 2.5 mg NEB Q4HR NEB PRN (Reason: Wheezing) RF: 0 hydrocodone-acetaminophen 10-325 mg Tablet 1 tab PO Q4H PRN (Reason: Pain Scale 1 To 5) Qty: 18 RF: 0 Continue clonidine HCl 0.2 mg Tablet 0.2 mg PO QID guanfacine 2 mg Tablet 2 mg PO BID losartan 50 mg Tablet 50 mg PO DAILY metoprolol tartrate 50 mg Tablet 50 mg PO BID ranitidine HCl 150 mg Tablet 150 mg PO DAILY spironolactone 25 mg Tablet 25 mg PO MOWEFR Discontinued aspirin [Aspirin Childrens] 81 mg Tablet,Chewable 81 mg PO MOWEFR atorvastatin 20 mg Tablet 20 mg PO DAILY No Action amlodipine [Norvasc] 5 mg Tablet 5 mg PO BID Referrals: Octavio Isaac MD [Primary Care Provider] - See Instructions
== END 2017-11-01 15:10 | disposition home or self-care (01) ==
LOC: HSDI 10:33 → N06 10-29 04:42
PROVIDERS: ADMIT Neurological Surgery; ATTEND Neurological Surgery